=== PATIENT | female | born 1965 | race Caucasian/White ===

== ENCOUNTER → 2024-02-20 13:16 | Outpatient (REF) | payer BC, SELFPAY | LOC: HWWDC 13:16 | PROVIDERS: ATTENDING PHYSICIAN Nurse Practitioner Adult Health; FAMILY PHYSICIAN Family Medicine | DX: Z12.31 Encounter for screening mammogram for malignant neoplasm of breast (principal); M25.552 Pain in left hip | CPT/HCPCS: 73521 ==

== ENCOUNTER → 2024-03-04 15:54 | Outpatient (REF) | payer BC, SELFPAY | LOC: HWRAD 15:54 | PROVIDERS: ATTENDING PHYSICIAN Family Medicine | DX: Z87.891 Personal history of nicotine dependence (principal) | CPT/HCPCS: 71271 ==

== ENCOUNTER → 2024-03-09 15:43 | Outpatient (REF) | payer BC, SELFPAY | LOC: HWRAD 15:43 | PROVIDERS: ATTENDING PHYSICIAN Chiropractor; FAMILY PHYSICIAN Family Medicine | DX: M54.2 Cervicalgia (principal); M53.2X7 Spinal instabilities, lumbosacral region | CPT/HCPCS: 72050; 72110 ==

== ENCOUNTER → 2024-09-10 13:25 | Outpatient (REF) | payer BC, SELFPAY | LOC: HWRAD 13:25 | PROVIDERS: ATTENDING PHYSICIAN Chiropractor; FAMILY PHYSICIAN Family Medicine | DX: R07.82 Intercostal pain (principal); M54.6 Pain in thoracic spine | CPT/HCPCS: 71110; 72072 ==

== ENCOUNTER → 2025-01-29 14:12 | Outpatient (REF) | payer BC, SELFPAY | LOC: HWRAD 14:12 | PROVIDERS: ATTENDING PHYSICIAN Family Medicine | DX: M54.2 Cervicalgia (principal); M50.30 Other cervical disc degeneration, unspecified cervical region | CPT/HCPCS: 72125 ==

== ENCOUNTER → 2025-02-22 13:12 | Outpatient (REF) | payer BC, SELFPAY | LOC: HWWDC 13:12 | PROVIDERS: ATTENDING PHYSICIAN Family Medicine | DX: Z12.31 Encounter for screening mammogram for malignant neoplasm of breast (principal) | CPT/HCPCS: 77063; 77067 ==

== ENCOUNTER → 2025-03-08 14:47 | Outpatient (REF) | payer BC, SELFPAY | LOC: HWRAD 14:47 | PROVIDERS: ATTENDING PHYSICIAN Family Medicine | DX: Z87.891 Personal history of nicotine dependence (principal); Z12.2 Encounter for screening for malignant neoplasm of respiratory organs | CPT/HCPCS: 71271 ==